=== PATIENT | male | born 1970 | race African-American/Black ===

== ENCOUNTER 2016-07-17 14:04 | Emergency (ER) | payer MEDICAID ==
[~2016-07-17] VITALS: Ht 185.4 cm; Wt 75.0 kg
[2016-07-17 14:18] VITALS: BP 110/75
== END 2016-07-17 17:00 | disposition home or self-care (01) ==
LOC: ER 16:17
DX: N61.1 Abscess of the breast and nipple (principal); L02.414 Cutaneous abscess of left upper limb; F17.210 Nicotine dependence, cigarettes, uncomplicated
CPT/HCPCS: 99283